=== PATIENT | male | born 1995 | race Caucasian/White ===

== ENCOUNTER 2017-09-16 23:00 | Emergency (ER) | payer SELFPAY | END 2017-09-17 00:20 | disposition home or self-care (01) | LOC: D.ER 23:00 | DX: S60.211A Contusion of right wrist, initial encounter (principal); S50.01XA Contusion of right elbow, initial encounter; W19.XXXA Unspecified fall, initial encounter; Y93.89 Activity, other specified; Y92.89 Other specified places as the place of occurrence of the external cause; S53.401A Unspecified sprain of right elbow, initial encounter; S63.501A Unspecified sprain of right wrist, initial encounter ==

== ENCOUNTER 2017-12-13 23:59 | Emergency (ER) | payer SELFPAY ==
[~2017-12-13] VITALS: Ht 180.3 cm; Wt 68.2 kg
[2017-12-14 00:13] VITALS: Ht 180.3 cm; Wt 68.2 kg
[2017-12-14 00:47] LABS: APPEARANCE CLEAR (CLEAR); BILIRUBIN NEGATIVE (NEGATIVE); COLOR YELLOW (YELLOW); GLUCOSE NEGATIVE (NEGATIVE); KETONE NEGATIVE (NEGATIVE); NITRITE NEGATIVE (NEGATIVE); PH 7.5 (5.0-6.0); PROTEIN NEGATIVE (NEGATIVE); UROBILINOGEN NORMAL (NORMAL)
[2017-12-14 01:01] LABS: HEMATOCRIT 42.1 % (42.0-54.0); HEMOGLOBIN 15.2 g/dL (13.5-17.5); LYMPHOCYTES 34.8 % (15-50); MCH 31.5 pg (26.0-34.0); MCHC 36.1 g/dL (31.0-37.0); MCV 87.2 fL (80.0-100.0); MEAN PLATELET VOLUME 10.4 fL (7.4-10.4); PLATELET COUNT 160 10x3/uL (130-400); RBC 4.83 10x6/uL (4.20-6.10); RDW 12.5 % (11.5-14.5); WBC 10.2 10x3/uL (4.8-10.8)
[2017-12-14 01:27] LABS: ALBUMIN 3.8 g/dL (3.4-5.0); ALKALINE PHOSPHATASE 118 U/L (46-116); ALT (SGPT) 26 U/L (10-68); BILIRUBIN - TOTAL 0.37 mg/dL (0.2-1.3); CALC OSMOLALITY 284 mosm/kg (275-300); CALCIUM 8.5 mg/dL (8.5-10.1); CARBON DIOXIDE 32.7 mmol/L (21.0-32.0); CHLORIDE - SERUM 106 mmol/L (98-107); GLUCOSE 83 mg/dL (74-106); POTASSIUM - SERUM 3.5 mmol/L (3.5-5.1); PROTEIN - SERUM 6.9 g/dL (6.4-8.2); SODIUM 143 mmol/L (136-145); UREA NITROGEN 15 mg/dL (7-18); eGFR NON AFRICAN AMERICAN > 90 mL/min (90-120)
[2017-12-14] MEDS ORDERED: ULTRACET TABLET1 TAB PO (04:36)
[2017-12-14 04:52] VITALS: BP 102/58
== END 2017-12-14 04:53 | disposition home or self-care (01) ==
LOC: D.ER 23:59
PROVIDERS: Emergency Medicine
DX: K52.9 Noninfective gastroenteritis and colitis, unspecified (principal)